=== PATIENT | male | born 2005 | race Caucasian/White ===

== ENCOUNTER → 2024-04-07 12:54 | Outpatient (REF) | payer BC, SELFPAY | LOC: RCS 12:54 | PROVIDERS: ATTENDING PHYSICIAN Nuclear Medicine Nuclear Cardiology | DX: R07.9 Chest pain, unspecified (principal); Q79.0 Congenital diaphragmatic hernia; Z13.220 Encounter for screening for lipoid disorders; R06.02 Shortness of breath | CPT/HCPCS: 93017; 93306 ==